=== PATIENT | male | born 1955 | race Caucasian/White ===

== ENCOUNTER 2025-04-01 13:45 | Inpatient (IN) | payer MEDICARE ==
[~2025-04-01] VITALS: Ht 175.3 cm; Wt 102.2 kg
[2025-04-01] VITALS (31 sets, daily range): BP systolic 100–156; BP diastolic 47–82; PULSE 42–73; RESP 10–20; TEMP 97.5–98.1; O2SAT 92–98
[2025-04-01] MEDS: DOCUMENT DATE & TIME OF BETA-BLOCKER PO ONE (05:30)
[2025-04-01] MEDS: ringers solution, lacted 1,000 ML IV SCH ×2 (05:30→15:55)
[2025-04-01] MEDS: ceFAZolin 2gm/dext,iso 50mL 50 ML IV ONE (05:30)
[~2025-04-01 13:45] MED LIST: AMI200T PO; AMLO5TAB16 PO; ASPI-611 PO; ATOR40TA72 PO; DIVA-51 PO; GABA-1405 PO; GUAN1TAB62 PO; HYDR-3972 PO; LISI20TA28 PO; METO25TA6 PO; TEST200V33 IM; ipratropium/albuterol 3ml nebule NEB ONE
[2025-04-01] MEDS ORDERED: sevoflurane 250ml liquid IH ONE (14:00)
[2025-04-01] MEDS ORDERED: fentaNYL/PF 50MCG/1 ML 2ML syringe ONE (14:07)
[2025-04-01] MEDS ORDERED: midazolam 1 mg/ML 2ml injection ONE (14:07)
[2025-04-01] MEDS ORDERED: propofol inj 20 ML IV ONE (14:08)
[2025-04-01] MEDS ORDERED: LIDOcaine 1%/PF 5ML 10 MG/ML VIAL ONE (14:08)
[2025-04-01] MEDS: famotidine 20mg tablet PO ONE (14:29)
[2025-04-01] MEDS ORDERED: APIX5TAB5 PO (14:45)
[2025-04-01] MEDS: ipratropium 0.5 MG/2.5ML nebule IH STA (14:46)
[2025-04-01 14:51] LABS: BASOPHILS # (AUTO) 0.1 X10'3 (0-0.2); EOSINOPHILS # (AUTO) 0.5 X10'3 (0-0.9); EOSINOPHILS % (AUTO) 5.8 % (0-6); LYMPHOCYTES # (AUTO) 1.5 X10'3 (1.1-4.8); LYMPHOCYTES % (AUTO) 18.1 % (21-51); MEAN CORPUSCULAR HEMOGLOBIN 29.4 PG (27.0-31.0); MEAN CORPUSCULAR HGB CONC 32.7 g/dL (33.0-36.5); MEAN CORPUSCULAR VOLUME 89.7 FL (78-98); MEAN PLATELET VOLUME 7.9 FL (7.4-10.4); MONOCYTES # (AUTO) 1.1 X10'3 (0-0.9); MONOCYTES % (AUTO) 13.5 % (2-12); NEUTROPHILS # (AUTO) 5.1 X10'3 (1.8-7.7); NEUTROPHILS % (AUTO) 61.6 % (42-75); PRE OP HEMATOCRIT 46.2 % (42.0-52.0); PRE OP HEMOGLOBIN 15.1 g/dL (14.0-17.9); PRE OP PLATELET COUNT 206 X10'3 (140-440); PRE OP WHITE BLOOD COUNT 8.3 10'3 (4.8-10.8); RED BLOOD COUNT 5.15 X10'6 (4.70-6.10)
[2025-04-01 15:03] LABS: ALBUMIN 3.2 G/DL (3.4-5.0); BLOOD UREA NITROGEN 30 MG/DL (7-18); BUN/CREATININE RATIO 17.1 (10.0-20.0); CALCIUM 8.6 MG/DL (8.5-10.1); CHLORIDE 103 MMOL/L (99-107); CREATININE 1.75 MG/DL (0.60-1.10); PRE OP ANION GAP 9 (8-16); PRE OP GLUCOSE 103 MG/DL (70-104); PRE OP POTASSIUM 4.5 MMOL/L (3.4-5.1); PRE OP SODIUM 140 MMOL/L (135-145); TOTAL CARBON DIOXIDE 27.8 MMOL/L (24-32); eCRCL 39 ML/MIN; eGFR 39 ML/MIN
[2025-04-01] MEDS: MIDAZolam 5mg/ml 2ml vial IV STA (15:03)
[2025-04-01 15:22] LABS: ALBUMIN/GLOBULIN RATIO 0.7 (1.1-1.5); ALKALINE PHOSPHATASE 81 IU/L (46-116); PRE OP ALT 23 U/L (30-65); PRE OP AST 15 U/L (10-37); PRE OP BILIRUB, TOTAL 0.4 MG/DL (0.0-1.0); TOTAL PROTEIN 7.8 G/DL (6.4-8.2)
[2025-04-01] MEDS ORDERED: morphine 4 MG/ML inj SYRINge IV PRN (15:55)
[2025-04-01] MEDS ORDERED: enalaprilat 1.25mg/ml 2ml vial IV PRN (15:55)
[2025-04-01] MEDS ORDERED: morphine 2 MG/ML inj. syringe IV PRN (15:55)
[2025-04-01] MEDS ORDERED: meperidine/PF 25mg/ml syringe IV PRN ×3 (15:55)
[2025-04-01] MEDS ORDERED: ondansetron/PF 4mg/2ml inj IV PRN ×2 (15:55→16:10)
[2025-04-01] MEDS ORDERED: proCHLORperazine 10 MG/2 ml inj IV PRN (15:55)
[2025-04-01] MEDS ORDERED: labetalol 20mg/4ml (5mg/ml) syringe IV PRN (15:55)
--- NOTE | 2025-04-01 16:01 | ANESTHESIA RECORDS ---
Nerve Block Providers to CC ~ Diagnosis: Nerve Block requested by: ELLYN ENGLAND DPJayden Neuraxial/Peripheral Nerve Block requested for Post-operative analgesia by Physician above DIAGNOSIS: Post-operative pain. (Body Area) Shoulder: [ ] Arm: [ ] Hand: [ ] Hip: [ ] Knee: [ ] Ankle: [ ] Foot: [ Right ] Leg: [ ] Abdomen: [ ] Other: [ ] Post-operative pain expected to be/is inadequately managed by oral or IV medicines. Regional anesthetic expected to facilitate rehabilitation and/or discharge from facility. Other:[ ] Procedure Performed: Popliteal Lateral: Right Time out Done?: Yes Time of Time out: 15:00 Procedure Details: PROCEDURE DETAILS: Risks, benefits and alternatives explained Informed consent obtained, and patient wishes to proceed Conscious sedation with indicated monitors Patient positioned, pertinent anatomy defined, sterile technique used Needle used: [ ] 3 1/8 inch Stimuplex Ultra 22ga [x ] 4 inch Stimuplex Ultra 20ga [ ] 6 inch Stimuplex Ultra 20ga [ ] 6 inch, Quikbloc over the needle catheter set 20ga [ ] 4 inch Quikbloc over the needle catheter set 20ga [ ]Other: [ ] Loss of twitch @ [____0.4 ]mA [x ] Single Injection [ ] Catheter Ultrasound Guidance Used: [x ] Yes [ ] No Attempts:[ once ] Medicines injected: [ x ]Clonidine Amt:[ 70 mcgs ] [x ]Dexamethasone Amt:[__3 mgs ] [x ]Ropivacaine Amt:[ 0.5% 28 cc ] [ ]Bupivacaine Amt:[ ] [ ]Lidocaine Amt:[ ] [ ]Exparel 1.33%:[ ] [ ]Epinephrine Amt[ ] [ ]Other: [ ] Intermittent aspiration during local anesthetic administration No symptoms of intraneural or intravenous injection Patient tolerated procedure well Comments Right Politeal fossa Block Pt in Lt lateral position with Left Leg flexed at 90 Degrees. Lateral approach. Ultrasound probe placed back of thigh 2 inches above the knee joint. Easy visualization of the Sciatic nerve. 1% xylocaine local anesthetic. Easy visualization of Spreading of local anesthetic anterior and posterior to the Sciatic nerve sub paraneurally inside sciatic nerve sheath. Meaningful conversation t throughout. No Pain or discomfort during injection. BESS DAVID MD Apr 01, 2025 16:01
[2025-04-01] MEDS ORDERED: dexamethasone sod phosphate 4mg/ml inj. ONE (16:06)
[2025-04-01] MEDS ORDERED: ROPIVAcaine 0.5% (5mg/ml) 30ml vial ONE (16:06)
--- NOTE | 2025-04-01 18:05 | OPERATIVE REPORT ---
DATE OF SURGERY: 04/01/2025 DICTATING PHYSICIAN: David Sr MD PREOPERATIVE DIAGNOSIS: Deep-seated infection with osteomyelitis, first ray, right foot. POSTOPERATIVE DIAGNOSIS: Deep-seated infection with osteomyelitis, first ray, right foot. PROCEDURE PERFORMED: Incision and drainage with partial first ray amputation, right foot. SURGEON: David Sr MD ELECTROMYOGRAPHIC TECHNICIAN: None. ANESTHESIA: General/Dr. Meyer. ESTIMATED BLOOD LOSS: Minimal. COMPLICATIONS: None. SPECIMEN: Deep wound cultures and hallux and first metatarsal bone specimens sent for microbiological and pathological analysis. INDICATIONS: The patient presented to our office with the above-stated chief complaints. The patient has been unresponsive to conservative treatment at this point, thus surgical options were offered at this time along with all potential risks, complications, expected outcomes being fully explained to the patient's full understanding. No guarantees were given. Clinical and radiographic findings do correlate well with the above diagnosis. PROCEDURE DETAILS: The patient was brought to the operating room and placed on the operating table in the supine position. Upon administration of anesthesia, the right foot was scrubbed, prepped and draped in usual aseptic manner. Pneumatic calf tourniquet which had previously been applied, was now inflated to approximately 250 mmHg. Next, a full-thickness teardrop-shaped incision created around the medial aspect of the first metatarsal and hallux on the right foot. The incision was carried full-thickness down to bone. The first metatarsal along with the previously placed cement antibiotic spacer and the hallux were completely resected and removed from the operative field. The hallux bone and first metatarsal base bone were sent for pathologic analysis. Deep wound cultures were obtained at this time and sent for microbiologic analysis. The first metatarsal base was completely removed as well, which was disarticulated through the first tarsometatarsal joint. The remaining bone and soft tissues were actually quite healthy in appearance. There was no purulence noted. There was no malodor and there was no abscess noted. The wound was then copiously flushed with IrriSept antibacterial solution in standard fashion. All devitalized tissue was removed down to healthy bleeding tissue. Correction of the above-stated deformities were assessed and found to be excellent. The wound was then closed with a combination of 2-0 and 3-0 nylon. The wound was then packed with quarter-inch iodoform packing. The wound was then covered with sterile triple ointment, sterile Adaptic, sterile 4 x 4, sterile Webril, Sid bandages in formation of moderate compressive dressing. Sedation was now discontinued. Tourniquet was deflated with immediate hyperemic response was noted to the left foot. The patient was taken to PACU for postoperative monitoring. All vitals were stable and vascular status intact. The patient was given crutches and a knee scooter. Follow up in my office approximately 1-2 weeks. He will be admitted to the floor for inpatient management and IV antibiotics as well as pain management and wound care therapy. David Sr MD TID: [id number] RECEIPT: [id number] LANNY/ALEXI/ELIN
[2025-04-01] MEDS ORDERED: magnesium Cl slow-release 64mg tablet PO PRN (18:10)
[2025-04-01] MEDS ORDERED: magnesium sulf-water 2g/50mL 50 ML IV PRN (18:10)
[2025-04-01] MEDS ORDERED: magnesium sulf-water 4G/100mL 100 ML IV PRN (18:10)
[2025-04-01] MEDS ORDERED: mag hydrox/Alum hydrox/simeth 30ml oral suspension PO PRN (18:10)
[2025-04-01] MEDS ORDERED: potassium Cl 40MEQ/1/2NS 520ml 520 ML IV PRN (18:10)
[2025-04-01] MEDS ORDERED: potassium Cl 20 mEq SR tablet PO PRN ×2 (18:10)
[2025-04-01] MEDS ORDERED: acetaminophen 325mg tablet PO PRN (18:10)
--- NOTE | 2025-04-01 19:11 | CONSULTATION REPORT - RESIDENT ---
Consult Providers to CC Resident Creating Document: BAMBI ANGULO RES History of Present Illness Reason for Admit\Complaint: S/P RIGHT GREAT TOE AMPUTATION SECONDARY TO OSTEOMYELITIS History of Present Illness 70-year-old male with history of AFib (recently diagnosed in January 2025), hypertension, admitted to the hospital for surgery of the right foot secondary to osteomyelitis. Incision and drainage with partial 1st ray amputation of the right foot by Dr. rS on 04/01/2025. Hospitalist team is being consulted for medical management. Denies significant chest pains, diaphoresis, fevers/chills, nasal congestion, expectoration, palpitations, or weight loss/weight gain. Quit smoking in 2017 used to smoke around two packs a day. Drinks alcohol rarely. Does not have a history of diabetes. Course of events: August 23, 2024 he had right hammertoe surgery done, post surgery within two months he developed infection with swelling. In January 2025 he had a surgery for repair of the infection. He also had osteomyelitis and was treated with IV daptomycin for six weeks [facility]. Completed the course of antibiotic two weeks ago, within five days of completion he had recurrence of infection and hence decided for amputation. Allergies: Coded Allergies: albuterol (Unverified Allergy, Intermediate, Tachycardia, anxiety, palpatations, 04/02/25) Home Medications Home Medications Active Reported Eliquis (Apixaban) 5 Mg (74 Tabs) Tab.ds.pk 1 Tab PO BID Amlodipine Besylate 5 Mg Tablet 1 Tab PO DAILY Metoprolol Tartrate 25 Mg Tablet 1 Tab PO BID Atorvastatin Calcium 40 Mg Tablet 1 Tab PO HS Lisinopril 20 Mg Tablet 1 Tab PO DAILY 30 Days Cordarone (Amiodarone HCl) 200 Mg Tablet 200 Mg PO BID Guanfacine Hcl 1 Mg Tablet 1 Tab PO HS Hydrocodon-Acetaminophn 10-325 tablet (Acetaminophen/Hydrocodone Bitart) 10mg- 325mg Tablet 1 Tab PO QID PRN Divalproex Sodium 250 Mg Tablet.dr 1 Tab PO BID TESTOSTERONE CYPIONATE 200mg/ml 10ml vial (Testosterone Cypionate) 200 Mg/1 Ml Vial 1.5 Ml IM Q2W Gabapentin 600 Mg Tablet 1 Tablet PO TID Aspir 81 (Aspirin) 81 Mg Tablet.dr 1 Tablet PO DAILY Past Medical History Past Medical History AFib Hypertension Osteomyelitis right great toe ROS ROS Reviewed in full. All negative except for pertinent positive HPI. Exam Vitals: Vital Signs Date Time Temp Pulse Resp B/P (MAP) Pulse Ox O2 Delivery O2 Flow Rate FiO2 04/01/25 17:40 64 16 116/58 (77) 96 2.0 04/01/25 17:30 Nasal Cannula 04/01/25 16:25 97.7 04/01/25 14:48 28 General: General: Awake and Alert, no acute distress. On 2 L oxygen nasal cannula, does not use home oxygen. HEENT: Conjunctiva pink, Sclera clear, Mucus Membranes moist. Neck: Supple without masses and tenderness. Resp: Unlabored. Bilateral rhonchi. Heart: Regular rhythm, normal S1 and S2, no rub, murmur or gallop. Abdomen: Soft and non tender no organomegaly. Normal bowel sounds x4 quadrant normoactive. No guarding or rigidity. Extremities: S/p right great toe amputation, right lower extremity in cast. No swelling, cyanosis or clubbing. GOLF STUD RIVETER: No gross motor or sensory abnormalities. Skin: Warm and Dry. Diagnostic Data Last Recorded Lab Results: 04/01/25 1420 04/01/25 1420 Additional Plan 70-year-old male with history of AFib (recently diagnosed in January 2025), hypertension, admitted to the hospital for surgery of the right foot secondary to osteomyelitis. Incision and drainage with partial 1st ray amputation of the right foot by Dr. Sr on 04/01/2025. Osteomyelitis right great toe S/p Incision and drainage with partial 1st ray amputation of the right foot by Dr. Sr on 04/01/2025 Continue IV antibiotics vanc and Zosyn Follow up with the wound cultures History of COPD Quit smoking in 2016 Continue IV antibiotics, breathing treatments and steroids History of AFib status post cardioversion Currently rate controlled Continue home medication History of polysubstance abuse Follow up with UTox Code Status: Full code DVT prophylaxis: Eliquis Analgesia/sedation: Morphine/[place] Line/tube: PIV GI prophylaxis: None Nutrition: Heart healthy Prognosis: Guarded Disposition: Continue medical management. Bambi Angulo MD. IM Resident PGY-2 Date of Service: Apr 01, 2025 Billing Provider: EILEEN FLORES MD Common Visit Codes: [id number] INP/OBS CARE (HIGH) BAMBI ANGULO, RES Apr 01, 2025 19:11 EILEEN FLORES MD Apr 02, 2025 22:10
[2025-04-01] MEDS: ipratropium/albuterol 3ml nebule NEB SCH (20:00)
[2025-04-01] MEDS: K and/or MAG REPLACEMENT MC SCH (20:00)
[2025-04-01] MEDS: vancomycin/NS 1 GM ADD-VANTAGE 250 ML IV SCH (21:25)
[2025-04-01] MEDS: divalproex 250mg tablet, delayed-release PO SCH (21:26)
[2025-04-01] MEDS: HYDROcodone/acetaminophen 10/325mg tab PO PRN (21:26)
[2025-04-01] MEDS: atorvastatin 20mg tablet PO SCH (21:26)
[2025-04-01] MEDS: guanFACINE 1 mg tablet PO SCH (21:27)
[2025-04-01] MEDS: metoprolol tartrate 25mg tablet PO SCH (21:27)
[2025-04-01] MEDS: apixaban 5mg tablet PO SCH (21:27)
[2025-04-01] MEDS: amiodarone 200mg tablet PO SCH (21:27)
[2025-04-01] MEDS: docusate sod 100mg capsule PO SCH (21:27)
[2025-04-01] MEDS: gabapentin 300mg capsule PO SCH (21:27)
[2025-04-01] MEDS: ipratropium 0.5 MG/2.5ML nebule IH SCH (23:50)
[2025-04-02] VITALS (11 sets, daily range): BP systolic 120–141; BP diastolic 54–73; PULSE 47–76; RESP 15–22; TEMP 97.2–98.1; O2SAT 91–97
[2025-04-02] MEDS: piperacillin/tazo 3.375gm/50ml 50 ML IV SCH (00:50)
[2025-04-02] MEDS: normal saline 1000ml 1,000 ML IV SCH (00:51)
--- NOTE | 2025-04-02 05:41 | ELECTROCARDIOGRAPH REPORT ---
[facility] Test Date: 2025-04-02 Test Time: 00:05:59 Pat Name: MALKA FLOYD Department: ORTHO/NEURO Room: ORTHO [facility] B Gender: M Technical Training Instructor: : 1955 Requested By: JAMEY MADDEN Order Number: [id number] Reading MD: Dr. Elle Mercado Measurements Intervals [place] Rate: 77 P: 67 HI: 171 QRS: 44 QRSD: 89 T: -6 QT: 418 QTc: 474 Interpretive Statements Sinus rhythm Ventricular bigeminy Borderline T abnormalities, inferior leads Electronically Signed On 04-04-2025 19:07:[address] Elle Mercado Please click the below link to view image of tracing.
--- NOTE | 2025-04-02 07:22 | PROGRESS NOTE ---
Progress Note Ortho Ortho Post Op Day #: 1 ROS ROS No new complaints Problem/Assessment/Plan Additional Plan 70M 1d s/p R partial 1st ray amputation. Doing well this morning. Awaiting path and Micro. Cont abx therapy. To pull packing tomorrow. Rest of care per primary. Thank you primary. Discussed with Dr Dalton. Results/Orders Result Diagram: 04/01/25 1420 04/01/25 1420 KRISTY SHUKLA DPM Apr 02, 2025 07:22
[2025-04-02 07:39] LABS: URINE AMPHETAMINE SCREEN NEGATIVE (Neg); URINE BARBITUATE SCREEN NEGATIVE (Neg); URINE BENZODIAZEPINES SCREEN POSITIVE (Neg); URINE CANNABINOID SCREEN NEGATIVE (Neg); URINE COCAINE SCREEN NEGATIVE (Neg); URINE METHADONE SCREEN NEGATIVE (Neg); URINE OPIATE SCREEN POSITIVE (Neg); URINE PHENCYCLIDINE SCREEN NEGATIVE (Neg)
[2025-04-02 07:44] LABS: BASOPHILS % (AUTO) 0.2 % (0-1); EOSINOPHILS % (AUTO) 0.1 % (0-6); HEMATOCRIT 44.4 % (42.0-52.0); HEMOGLOBIN 14.3 g/dl (14.0-17.9); LYMPHOCYTES # (AUTO) 0.7 X10'3 (1.1-4.8); LYMPHOCYTES % (AUTO) 6.2 % (21-51); MEAN CORPUSCULAR HEMOGLOBIN 29.1 PG (27.0-31.0); MEAN CORPUSCULAR HGB CONC 32.3 g/dL (33.0-36.5); MEAN PLATELET VOLUME 7.8 FL (7.4-10.4); MONOCYTES # (AUTO) 0.8 X10'3 (0-0.9); NEUTROPHILS # (AUTO) 10.1 X10'3 (1.8-7.7); NEUTROPHILS % (AUTO) 86.5 % (42-75); PLATELET COUNT 203 X10'3 (140-440); RED BLOOD COUNT 4.93 X10'6 (4.70-6.10); RED CELL DISTRIBUTION WIDTH 17.8 % (11.5-14.5); WHITE BLOOD COUNT 11.7 X10'3 (4.5-11.0)
[2025-04-02 07:44] LABS: BILIRUBIN,URINE NEGATIVE (Neg); CLARITY,URINE SLIGHTLY CLOUDY (Clear); COLOR,URINE YELLOW (Yellow); GLUCOSE, URINE NEGATIVE (Neg); KETONES,URINE TRACE mg/dl (Neg); LEUKOCYTE ESTERASE ,URINE NEGATIVE (Neg); NITRITES, URINE NEGATIVE (Neg); OCCULT BLOOD,URINE NEGATIVE (Neg); PROTEIN,URINE NEGATIVE (Neg); UROBILINOGEN,URINE 0.2 E.U/dL (0.2-1.0)
[2025-04-02 07:50] LABS: UA COLLECTION TYPE CLN CATCH MIDSTREAM
[2025-04-02 07:58] LABS: BACTERIA,URINE FEW /HPF (Neg); RBC,URINE 0-2 /HPF (0-2)
[2025-04-02 07:59] LABS: CAL OXALATE CRYSTALS 1+ /HPF (NEGATIVE); HYALINE CASTS 0-3 /LPF (NEGATIVE); MUCUS STRANDS NONE SEEN /LPF (Neg); SQUAMOUS EPITHELIAL CELL,UR FEW /LPF (FEW); TRANSITIONAL EPI CELLS,URINE FEW /HPF; WBC CLUMPS,URINE FEW /HPF (NEGATIVE)
[2025-04-02] MEDS: aspirin 81mg, enteric-coated 1 TAB TABLET.DR PO SCH (08:33)
[2025-04-02] MEDS: lisinopril 20mg tablet PO SCH (08:37)
[2025-04-02] MEDS: amLODIPine 5mg tablet PO SCH (08:39)
[2025-04-02] MEDS: furosemide 20 MG/2 ML vial IV ONE ×2 (08:41→13:40)
[2025-04-02] MEDS: methylPREDNISolone sod succ/PF 40mg inj. IV SCH (08:42)
[2025-04-02 08:53] LABS: ALBUMIN 2.8 G/DL (3.4-5.0); ANION GAP 9 (8-16); BLOOD UREA NITROGEN 31 MG/DL (7-18); BUN/CREATININE RATIO 18.8 (10.0-20.0); CALCIUM 8.5 MG/DL (8.5-10.1); CHLORIDE 101 MMOL/L (99-107); CREATININE 1.65 MG/DL (0.60-1.10); GLUCOSE 134 MG/DL (70-104); MAGNESIUM 2.6 MG/DL (1.5-2.4); PHOSPHORUS 2.7 MG/DL (2.3-4.5); PRO BRAIN NATRIURETIC PEPTIDE 1457 PG/ML (0-125); SODIUM 137 MMOL/L (135-145); TOTAL CARBON DIOXIDE 26.9 MMOL/L (24-32); eCRCL 42 ML/MIN; eGFR 41 ML/MIN
[2025-04-02] MEDS: vancomycin/NS 1 GM ADD-VANTAGE 250 ML IV SCH (09:00)
--- NOTE | 2025-04-02 13:53 | PROGRESS NOTE- Residence ---
Progress Note - Resident Providers to CC Resident Creating Document: BAMBI ANGULO RES ~ Antibiotic Timeout Antibiotic Ordered?: Yes Subjective Patient seen and examined at bedside. He is on 2 L oxygen nasal cannula, he his wheezing and has right-sided crackles. He does not use any home oxygen. He had a brief episode of bradycardia heart rate in low 30s last night, was started on IV fluids. Post episode heart rate has been stable, 70s. He states he has a equipment available at home, wheelchair and walker. Monitor heart rate and hold blood pressure medication especially metoprolol if heart rate is below 60. Foot needs to be nonweightbearing per Dr. Hawkins. Objective Vital Signs Date Time Temp Pulse Resp B/P (MAP) Pulse Ox O2 Delivery O2 Flow Rate FiO2 04/02/25 10:00 98.1 76 18 141/60 (87) 97 Room Air 04/02/25 09:01 0.0 21 Result Diagram: 04/02/25 0721 04/02/25 0721 General: Awake and Alert, no acute distress. On 2 L oxygen nasal cannula, does not use home oxygen. HEENT: Conjunctiva pink, Sclera clear, Mucus Membranes moist. Neck: Supple without masses and tenderness. Resp: Unlabored. Bilateral rhonchi and right basal crackles. Heart: Regular rhythm, normal S1 and S2, no rub, murmur or gallop. Abdomen: Soft and non tender no organomegaly. Normal bowel sounds x4 quadrant normoactive. No guarding or rigidity. Extremities: S/p right great toe amputation, right lower extremity in cast. No swelling, cyanosis or clubbing. PATROL DEPUTY SHERIFF: No gross motor or sensory abnormalities. Skin: Warm and Dry. Assessment Assessment 70-year-old male with history of AFib (recently diagnosed in January 2025), hypertension, admitted to the hospital for surgery of the right foot secondary to osteomyelitis. Incision and drainage with partial 1st ray amputation of the right foot by Dr. Sr on 04/01/2025. Plan Plan Osteomyelitis right great toe S/p Incision and drainage with partial 1st ray amputation of the right foot by Dr. Sr on 04/01/2025 Continue IV antibiotics vanc and Zosyn Follow up with the wound cultures 04/02/[address] Sr regarding operative findings, surrounding site appeared healthy and all the bone that appeared was removed during surgery Contacted Dr. Escobar for antibiotic recommendations, Augmentin and doxycycline for a couple of weeks He will have to work with physical therapy, he has a home equipment available. Foot has to be nonweightbearing. Follow up with final cultures Acute CHF with preserved EF BNP 1457 He has right basal crackles and is also wheezing on exam Given him Lasix 40 x 1 Continue Lasix 20 IV b.i.d. History of COPD Quit smoking in 2017 Continue IV antibiotics, breathing treatments and steroids History of AFib status post cardioversion Currently rate controlled Continue home medication History of polysubstance abuse UTox negative Code Status: Full code DVT prophylaxis: Eliquis Analgesia/sedation: Morphine/[place] Line/tube: PIV GI prophylaxis: None Nutrition: Heart healthy Prognosis: Guarded Disposition: Continue medical management. Bambi Angulo MD. IM Resident PGY-2 Date of Service: Apr 02, 2025 Billing Provider: EILEEN FLORES MD Common Visit Codes: [id number] INP/OBS CARE(HIGH) BAMBI ANGULO, RES Apr 02, 2025 13:53 EILEEN FLORES MD Apr 02, 2025 22:15
[2025-04-02] MEDS ORDERED: furosemide 40mg/4ml inj IV SCH (20:00)
[2025-04-02] MEDS: furosemide 20 MG/2 ML vial IV SCH (21:10)
[2025-04-03 01:59] VITALS: O2SAT 95
[2025-04-03] MEDS: vancomycin/NS 1 GM ADD-VANTAGE 250 ML IV SCH (04:06)
[2025-04-03 06:00] VITALS: BP 117/69; PULSE 37; RESP 17; TEMP 97.3; O2SAT 95
[2025-04-03 06:27] LABS: BASOPHILS # (AUTO) 0.1 X10'3 (0-0.2); BASOPHILS % (AUTO) 0.4 % (0-1); EOSINOPHILS % (AUTO) 0 % (0-6); HEMATOCRIT 43.5 % (42.0-52.0); HEMOGLOBIN 14.1 g/dl (14.0-17.9); LYMPHOCYTES # (AUTO) 0.8 X10'3 (1.1-4.8); LYMPHOCYTES % (AUTO) 4.7 % (21-51); MEAN CORPUSCULAR HEMOGLOBIN 29.1 PG (27.0-31.0); MEAN CORPUSCULAR HGB CONC 32.5 g/dL (33.0-36.5); MEAN CORPUSCULAR VOLUME 89.5 FL (78-98); MEAN PLATELET VOLUME 8.2 FL (7.4-10.4); MONOCYTES # (AUTO) 1.5 X10'3 (0-0.9); MONOCYTES % (AUTO) 9.3 % (2-12); NEUTROPHILS # (AUTO) 14.1 X10'3 (1.8-7.7); NEUTROPHILS % (AUTO) 85.6 % (42-75); PLATELET COUNT 244 X10'3 (140-440); RED BLOOD COUNT 4.86 X10'6 (4.70-6.10); RED CELL DISTRIBUTION WIDTH 18.3 % (11.5-14.5); WHITE BLOOD COUNT 16.5 X10'3 (4.5-11.0)
[2025-04-03 06:40] LABS: ALBUMIN 2.7 G/DL (3.4-5.0); ANION GAP 5 (8-16); BLOOD UREA NITROGEN 28 MG/DL (7-18); BUN/CREATININE RATIO 18.5 (10.0-20.0); CALCIUM 8.8 MG/DL (8.5-10.1); CHLORIDE 106 MMOL/L (99-107); CREATININE 1.51 MG/DL (0.60-1.10); GLUCOSE 125 MG/DL (70-104); MAGNESIUM 2.5 MG/DL (1.5-2.4); PHOSPHORUS 2.4 MG/DL (2.3-4.5); POTASSIUM 5.3 MMOL/L (3.5-5.1); SODIUM 140 MMOL/L (135-145); TOTAL CARBON DIOXIDE 28.8 MMOL/L (24-32); eCRCL 46 ML/MIN; eGFR 46 ML/MIN
[2025-04-03] MEDS: HYDROmorphone inj. 0.5 MG/0.5 ML DISP.SYRIN IV PRN (07:04)
[2025-04-03 08:15] VITALS: PULSE 68; RESP 20; O2SAT 93
[2025-04-03] MEDS ORDERED: levalbuterol 0.63mg/3ml nebule IH PRN (09:10)
[2025-04-03] MEDS ORDERED: ipratropium 0.5 MG/2.5ML nebule IH PRN (09:10)
[2025-04-03] MEDS ORDERED: AMOX-580 PO (09:29)
[2025-04-03] MEDS ORDERED: DOXY-243 PO (09:29)
[2025-04-03] MEDS ORDERED: FURO40TA4 PO (09:29)
[2025-04-03 10:00] VITALS: BP 157/69; PULSE 89; RESP 18; TEMP 97.9; O2SAT 94
[2025-04-03 11:15] VITALS: BP_SYST 157; PULSE 94
[2025-04-03] MEDS: ondansetron/PF 4mg/2ml inj IV PRN (11:16)
[2025-04-03 15:49] VITALS: RESP 18; O2SAT 94
--- NOTE | 2025-04-03 16:53 | PROGRESS NOTE ---
Progress Note Ortho Ortho Post Op Day #: 2 ROS ROS No new complaints Exam Exam: Alert and Oreinted x4 Problem/Assessment/Plan Additional Plan 70M 2d s/p Right partial first ray ampuation of the foot. Pt doing well today. Packing pulled with no sings of residual infection. Suture intact with skin approximated BWTD placed over anisha with splint placed back on - Cx are growing Gram + cocci to date - Rec cont abx therapy upon DC - Pt to remain NWB to the RLE ---To note pt tried to negotiate WB terms, I told him that we are limb salvage now and our team has to rec total NWB at this time for best potential to heal. I do fear that He will place weight on the extremity - Keep dressings D/C/I - Ok for DC from foot and ankle standpoint - Discussed with Dr Sr Results/Orders Result Diagram: 04/03/25 0528 04/03/25 0528 KRISTY SHUKLA DPM Apr 03, 2025 16:53
--- NOTE | 2025-04-03 21:07 | DISCHARGE SUMMARY-Residence ---
Discharge Summary Providers to CC Resident Creating Document: GABRIELLE ANGULO RES ~ Discharge Summary Admission Diagnosis: RIGHT FOOT INC AND dRAINAGE Hospital Course DATE OF ADMISSION: 04/01/2025 DATE OF DISCHARGE: 04/03/2025 Hospital course same as mentioned discharge summary. Discharge Diagnosis\Comment: Osteomyelitis right great toe status post incision and drainage with partial 1st ray amputation in the right foot by Dr. Hawkins on 04/01/2025 Acute CHF with preserved EF History of COPD History of AFib status post cardioversion Operations\Procedures: S/p Incision and drainage with partial 1st ray amputation of the right foot by Dr. Sr on 04/01/2025 Consultants: Dr. Smith Complications: None Condition on DC: Stable New Medications: Amox Tr/Potassium Clavulanate 875/125 MG (Augmentin 875/125 MG) 875 Mg-125 Mg Tablet 1 TAB PO BID, #30 TAB Doxycycline Hyclate (Doxycycline Hyclate) 100 Mg Tablet.dr 100 MG PO BID, #30 TAB Furosemide 40 MG (Lasix) 40 Mg Tablet 1 TAB PO DAILY for 30 Days, #30 TAB Continued Medications: Amiodarone Hcl (Cordarone) 200 Mg Tablet 200 MG PO BID, TAB Amlodipine Besylate (Amlodipine Besylate) 5 Mg Tablet 1 TAB PO DAILY Apixaban (Eliquis) 5 Mg (74 Tabs) Tab.ds.pk 1 TAB PO BID Aspirin (Aspir 81) 81 Mg Tablet.dr 1 TABLET PO DAILY, TABLET 5 Refills Atorvastatin Calcium (Atorvastatin Calcium) 40 Mg Tablet 1 TAB PO HS Divalproex Sodium (Divalproex Sodium) 250 Mg Tablet.dr 1 TAB PO BID Gabapentin (Gabapentin) 600 Mg Tablet 1 TABLET PO TID, TABLET 3 Refills Guanfacine Hcl (Guanfacine Hcl) 1 Mg Tablet 1 TAB PO HS Hydrocodone Bit/Acetaminophen (Hydrocodon-Acetaminophn 10-325 tablet) 10mg- 325mg Tablet 1 TAB PO QID PRN for pain Lisinopril (Lisinopril) 20 Mg Tablet 1 TAB PO DAILY for 30 Days, #30 TAB Metoprolol Tartrate (Metoprolol Tartrate) 25 Mg Tablet 1 TAB PO BID Testosterone Cypionate (TESTOSTERONE CYPIONATE 200mg/ml 10ml vial) 200 Mg/1 Ml Vial 1.5 ML IM Q2W Discharge Summary: Has been HPI: 70-year-old male with history of AFib (recently diagnosed in January 2025), hypertension, admitted to the hospital for surgery of the right foot secondary to osteomyelitis. Incision and drainage with partial 1st ray amputation of the right foot by Dr. Sr on 04/01/2025. Hospitalist team is being consulted for medical management. Denies significant chest pains, diaphoresis, fevers/chills, nasal congestion, expectoration, palpitations, or weight loss/weight gain. Quit smoking in 2017 used to smoke around two packs a day. Drinks alcohol rarely. Does not have a history of diabetes.Course of events: August 23, 2024 he had right hammertoe surgery done, post surgery within two months he developed infection with swelling. In January 2025 he had a surgery for repair of the infection. He also had osteomyelitis and was treated with IV daptomycin for six weeks arrhythmias [facility]. Completed the course of antibiotic two weeks ago, within five days of completion he had recurrence of infection and hence decided for amputation. Hospital course: Post surgery the patient has been doing well. ID was contacted for antibiotic recommendation recommended to continue Augmentin and doxycycline for couple of weeks. He worked with physical therapy and he has home equipment available. Foot has to be nonweightbearing per Dr. Hawkins. He was also in acute CHF with preserved EF with elevated BNP started him on Lasix, he improved significantly. Was given breathing treatments for history of COPD was not in exacerbation. History of AFib which is rate controlled. His hospital course is uncomplicated he is hemodynamically stable on the day of discharge and her physical exam is as follows: General: Awake and Alert, no acute distress. On 2 L oxygen nasal cannula, does not use home oxygen. HEENT: Conjunctiva pink, Sclera clear, Mucus Membranes moist. Neck: Supple without masses and tenderness. Resp: Unlabored. Bilateral rhonchi and right basal crackles. Heart: Regular rhythm, normal S1 and S2, no rub, murmur or gallop. Abdomen: Soft and non tender no organomegaly. Normal bowel sounds x4 quadrant normoactive. No guarding or rigidity. Extremities: S/p right great toe amputation, right lower extremity in cast. No swelling, cyanosis or clubbing. FAMILY PHYSICIAN: No gross motor or sensory abnormalities. Skin: Warm and Dry. Discharge medications can be found above. Laboratory Tests Test 04/02/25 07:05 6/6/25 07:21 04/03/25 05:28 Urine Specimen Description Cln catch midstream Urine Color Yellow Urine Clarity Slightly cloudy Urine pH 6.0 Urine Specific Ellis 1.025 Urine Protein Negative mg/dl Urine Glucose (UA) Negative mg/dl Urine Ketones Trace mg/dl Urine Occult Blood Negative Urine Nitrite Negative Urine Bilirubin Negative Urine Urobilinogen 0.2 E.U/dL Urine Leukocyte Esterase Negative Urine RBC 0-2 /HPF Urine WBC 5-10 /HPF Urine WBC Clumps Few /HPF Urine Squamous Epithelial Cells Few /LPF Urine Transitional Epithelial Cells Few /HPF Urine Calcium Oxalate Crystals 1+ /HPF Urine Bacteria Few /HPF Urine Hyaline Casts 0-3 /LPF Urine Mucus None seen /LPF Urine Culture Indicated Indicated Volume Urine Centrifuged 10 ml Urine Comment Urine Opiates Screen Positive Urine Methadone Screen Negative Urine Fentanyl Screen Positive Urine Barbiturates Screen Negative Urine Phencyclidine Screen Negative Urine Amphetamines Screen Negative Urine Benzodiazepines Screen Positive Urine Cocaine Screen Negative Urine Cannabinoids Screen Negative Drug Screen Comment White Blood Count 11.7 X10'3 16.5 X10'3 Red Blood Count 4.93 X10'6 4.86 X10'6 Hemoglobin 14.3 g/dl 14.1 g/dl Hematocrit 44.4 % 43.5 % Mean Corpuscular Volume 90.0 FL 89.5 FL Mean Corpuscular Hemoglobin 29.1 PG 29.1 PG Mean Corpuscular Hemoglobin Concent 32.3 g/dL 32.5 g/dL Red Cell Distribution Width 17.8 % 18.3 % Platelet Count 203 X10'3 244 X10'3 Mean Platelet Volume 7.8 FL 8.2 FL Neutrophils (%) (Auto) 86.5 % 85.6 % Lymphocytes (%) (Auto) 6.2 % 4.7 % Monocytes (%) (Auto) 7.0 % 9.3 % Eosinophils (%) (Auto) 0.1 % 0 % Basophils (%) (Auto) 0.2 % 0.4 % Neutrophils # (Auto) 10.1 X10'3 14.1 X10'3 Lymphocytes # (Auto) 0.7 X10'3 0.8 X10'3 Monocytes # (Auto) 0.8 X10'3 1.5 X10'3 Eosinophils # (Auto) 0.0 X10'3 0.0 X10'3 Basophils # (Auto) 0.0 X10'3 0.1 X10'3 CBC Comment Sodium Level 137 MMOL/L 140 MMOL/L Potassium Level 5.0 MMOL/L 5.3 MMOL/L Chloride Level 101 MMOL/L 106 MMOL/L Carbon Dioxide Level 26.9 MMOL/L 28.8 MMOL/L Anion Gap 9 5 Blood Urea Nitrogen 31 MG/DL 28 MG/DL Creatinine 1.65 MG/DL 1.51 MG/DL Estimated GFR/1.73 m2 41 ML/MIN 46 ML/MIN BUN/Creatinine Ratio 18.8 18.5 Glucose Level 134 MG/DL 125 MG/DL Calcium Level 8.5 MG/DL 8.8 MG/DL Phosphorus Level 2.7 MG/DL 2.4 MG/DL Magnesium Level 2.6 MG/DL 2.5 MG/DL Pro-B-Type Natriuretic Peptide 1457 PG/ML Albumin 2.8 G/DL 2.7 G/DL Chemistry Comments *Problems/Diagnosis: (1) Osteomyelitis of right foot Status: Acute Total Time Spent on D/C: > 30 Minutes Date of Service: Apr 03, 2025 Billing Provider: EILEEN FLORES MD Common Visit Codes: [id number] DISCH DAY >30min GABRIELLE ANGULO, RES Apr 03, 2025 21:07 EILEEN FLORES MD Apr 04, 2025 06:44
[2025-04-04] MEDS ORDERED: VANCOMYCIN LEVEL IV ONE (03:30)
[2025-04-07] MEDS ORDERED: GABA-1405 PO (22:59)
[2025-04-07] MEDS ORDERED: LOP12.5T PO (22:59)
[2025-04-07] MEDS ORDERED: CEPH500C2 PO (22:59)
[2025-04-07] MEDS ORDERED: SULF1TAB48 PO (22:59)
[2025-04-07] MEDS ORDERED: LISI40TA13 PO (22:59)
[2025-04-07] MEDS ORDERED: TEN1T PO (22:59)
[2025-04-07] MEDS ORDERED: HYDR-3972 PO (22:59)
[2025-04-10] MEDS ORDERED: TESTOSTERONE CYPIONATE 200 MG/ML VIAL IM SCH (08:00)
== END 2025-04-03 15:20 | disposition home or self-care (01) | DRG 474 ==
LOC: OR 13:45 → ORTHO 4S 16:22 → UNDODISIN 04-03 16:43
PROVIDERS: ADMIT Podiatrist Foot & Ankle Surgery; ATTEND Podiatrist Foot & Ankle Surgery
PROC: 3E0T3BZ Introduction of Anesthetic Agent into Peripheral Nerves and Plexi, Percutaneous Approach (ICD-10-PCS; 2025-04-01)
PROC: 3E0T33Z Introduction of Anti-inflammatory into Peripheral Nerves and Plexi, Percutaneous Approach (ICD-10-PCS; 2025-04-01)
PROC: 0Y6M0Z4 Detachment at Right Foot, Complete 1st Ray, Open Approach (ICD-10-PCS; principal; 2025-04-01 14:50)
DX: M86.8X7 Other osteomyelitis, ankle and foot (principal); I50.31 Acute diastolic (congestive) heart failure; I48.91 Unspecified atrial fibrillation; I11.0 Hypertensive heart disease with heart failure; J44.9 Chronic obstructive pulmonary disease, unspecified; F19.10 Other psychoactive substance abuse, uncomplicated; Z79.01 Long term (current) use of anticoagulants; Z79.899 Other long term (current) drug therapy
CPT/HCPCS: 36415; 80048; 80053; 80305; 81001; 82948; 83605; 83735; 83880; 84100; 84132; 85025; 87040; 87070; 87075; 87077; 87081; 87088; 87186; 93005; 94640; 94760; A4615; A4618; A6253; A6266; A6449; A7000; G0378; J0690; J1100; J1171; J1938; J2250; J2405; J2543; J2704; J2795; J2919; J3010; J3370; J3490; J7030; J7120